=== PATIENT | female | born 1985 | race Caucasian/White ===

== ENCOUNTER 2016-06-30 20:08 | Emergency (ER) | payer MEDICAID | END 2016-06-30 22:40 | disposition home or self-care (01) | LOC: ER 20:08 | DX: O34.82 Maternal care for other abnormalities of pelvic organs, second trimester (principal); N83.11 Corpus luteum cyst of right ovary; Z3A.15 15 weeks gestation of pregnancy | CPT/HCPCS: 36415; 76815; 76830; 80053; 81001; 83690; 84702; 85025; 86901 ==